=== PATIENT | female | born 1990 | race Caucasian/White ===

== ENCOUNTER 2016-07-03 16:08 | Emergency (ER) | payer OTHER ==
[~2016-07-03] VITALS: Ht 177.8 cm; Wt 113.4 kg
[~2016-07-03 16:08] MED LIST: AMOXIL500 MG PO; ANTIBIOTIC O500 U/GM TP; ATARAX25 MG PO; BACTRIM DS 8001 TA1 PO; BENTYL10 MG PO; BUSPIRONE10 MG PO; CARAFATE1 G1 PO; CARBIDOPA/LEVOD1 TA1 PO; CEPHALEXIN500 M1 PO; CYMBALTA30 MG PO; CYMBALTA60 MG PO; EFFEXOR XR75 M1 PO; EFFEXOR100 MG PO; FLEXERIL10 MG PO; GABAPENTIN TAB600 MG PO; GABAPENTIN800 MG PO; HYDROCODONE BIT1 T11 PO; KEFLEX500 MG PO; LATU20TA PO; MACROBID100 M1; MACROBID100 M1 PO; METHOCARBAMOL750 M1 PO; MOTRIN800 MG PO; NAPROSYN500 MG PO; NAPROXEN EC500 MG PO; NKHM; NORCO 325 MG-51 TAB PO; NORCO 5-325 TA1 EACH PO; PERCOCET 325 MG1 TA2 PO; PERCOCET 325 MG1 TA5 PO; PNV-DHA1 SGL PO; PREDNICOT20 MG PO; PRENATAL VITAMI1 TAB PO; PRILOSEC20 MG PO; PRILOSEC40 MG PO; PRISTIQ100 MG PO; PRISTIQ50 MG PO; PROFERRIN ES12 MG PO; PYRIDIUM200 MG PO; QUETIAPINE FUMA25 MG PO; REMERON15 MG PO; RESTORIL30 M1 PO; REXULTI2 MG PO; ROBAXIN750 MG PO; TRAMADOL HCL50 MG PO; ULTRAM50 MG PO; VIIBRYD40 PO; ZANTAC 150150 MG PO; ZANTAC150 MG PO; ZITHROMAX Z PA250 MG PO; [UNRECOGNIZED DRUG - OTHER]
[2016-07-03 17:05] LABS: BASO % 0.4 % (0.0-1.0); EOS # 0.4 10*3/uL (0.0-0.4); EOS % 4.1 % (1.0-4.0); HEMATOCRIT 37.8 % (37.0-47.0); IG # 0.1 10*3/uL (0.0-0.1); LYMPH # 3.4 10*3/uL (1.3-4.4); LYMPH % 35.3 % (27.0-41.0); MEAN CELL VOLUME 97.7 fl (81.0-99.0); MEAN CORPUSCULAR HGB 33.6 pg (27.0-31.0); MEAN CORPUSCULAR HGB CONC 34.4 g/dl (33.0-37.0); MEAN PLATELET VOLUME 9.9 fl (9.6-12.3); MONO # 0.5 10*3/uL (0.1-1.0); MONO % 5.3 % (3.0-9.0); NEUT # 5.2 10*3/uL (2.3-7.9); NEUT % 54.4 % (47.0-73.0); PLATELET COUNT AUTOMATED 270 10*3/uL (130-400); RED BLOOD COUNT 3.87 10*6/uL (4.10-5.10); RED CELL DISTRI WIDTH 12.1 % (0-14.5); WHITE BLOOD COUNT 9.5 10*3/uL (4.8-10.8)
[2016-07-03 17:29] LABS: ALBUMIN 3.4 gm/dl (3.1-4.5); ALKALINE PHOSPHATASE 80 U/L (45-117); BILIRUBIN, TOTAL 0.2 mg/dl (0.2-1.0); BUN 13 mg/dl (7-24); CARBON DIOXIDE 27 mmol/L (21-32); CHLORIDE 106 mmol/L (98-107); EST GLOM FILT AFRICAN AMERICAN > 60 ml/min; GLUCOSE 92 mg/dL (65-99); POTASSIUM 3.8 mmol/L (3.5-5.1); SGOT/AST 13 IU/L (3-35); SGPT/ALT 22 U/L (12-78); SODIUM 141 mmol/L (136-145); TOTAL PROTEIN 7.1 gm/dL (6.4-8.2)
[2016-07-03 17:32] LABS: TROPONIN I < 0.015 ng/ml (<0.5)
[2016-07-03] MEDS ORDERED: CYCLOBENZAPRINE10 MG PO (17:51)
[2016-07-03] MEDS ORDERED: PREDNISONE20 M1 PO (17:51)
== END 2016-07-03 18:14 | disposition home or self-care (01) ==
LOC: ED 16:08
PROVIDERS: Nurse Practitioner Family
DX: S46.912A Strain of unspecified muscle, fascia and tendon at shoulder and upper arm level, left arm, initial encounter (principal); R22.0 Localized swelling, mass and lump, head; T36.1X5A Adverse effect of cephalosporins and other beta-lactam antibiotics, initial encounter; Z88.0 Allergy status to penicillin; Z88.6 Allergy status to analgesic agent; X58.XXXA Exposure to other specified factors, initial encounter; Y93.9 Activity, unspecified; Y92.9 Unspecified place or not applicable; Y99.9 Unspecified external cause status

== ENCOUNTER 2017-09-23 15:42 | Emergency (ER) | payer OTHER ==
[~2017-09-23] VITALS: Ht 177.8 cm; Wt 104.3 kg
[~2017-09-23 15:42] MED LIST changes: +CYCLOBENZAPRINE10 MG PO; +PREDNISONE20 M1 PO
[2017-09-23] MEDS ORDERED: CYCLOBENZAPRINE5 M3 PO (17:20)
== END 2017-09-23 17:26 | disposition home or self-care (01) ==
LOC: ED 15:42
DX: S16.1XXA Strain of muscle, fascia and tendon at neck level, initial encounter (principal); R51 Headache; F17.200 Nicotine dependence, unspecified, uncomplicated; F11.10 Opioid abuse, uncomplicated; Z98.51 Tubal ligation status; Z79.899 Other long term (current) drug therapy; Z88.0 Allergy status to penicillin; Z88.6 Allergy status to analgesic agent; Z88.8 Allergy status to other drugs, medicaments and biological substances; V49.88XA Car occupant (driver) (passenger) injured in other specified transport accidents, initial encounter; Y93.89 Activity, other specified; Y92.413 State road as the place of occurrence of the external cause; Y99.9 Unspecified external cause status

== ENCOUNTER → 2019-10-21 | Outpatient (CLI) | payer OTHER ==
[~2019-10-21] MED LIST changes: +COLACE100 MG PO; +CYCLOBENZAPRINE5 M3 PO; +MIRALAX POWDER17 G1 PO
== END | disposition home or self-care (01) ==
LOC: RAD 12:03
DX: M54.5 Low back pain (principal)

== ENCOUNTER 2019-11-10 13:46 | Emergency (ER) | payer OTHER ==
[~2019-11-10] VITALS: Ht 177.8 cm; Wt 104.3 kg
[2019-11-10] MEDS ORDERED: Motrin,Rufen800 MG PO (17:19)
[2019-11-10] MEDS ORDERED: CYCLOBENZAPRINE5 M3 PO (17:19)
== END 2019-11-10 17:46 | disposition home or self-care (01) ==
LOC: ED 13:46
DX: S13.4XXA Sprain of ligaments of cervical spine, initial encounter (principal); F17.200 Nicotine dependence, unspecified, uncomplicated; Z98.51 Tubal ligation status; Z79.899 Other long term (current) drug therapy; Z88.0 Allergy status to penicillin; Z88.6 Allergy status to analgesic agent; V49.88XA Car occupant (driver) (passenger) injured in other specified transport accidents, initial encounter; Y93.89 Activity, other specified; Y92.413 State road as the place of occurrence of the external cause; Y99.9 Unspecified external cause status

== ENCOUNTER → 2019-11-30 | Outpatient (CLI) | payer OTHER ==
[~2019-11-30] MED LIST changes: +Motrin,Rufen800 MG PO
[2019-11-30 10:57] LABS: HEMATOCRIT 39.1 % (37.0-47.0); MEAN CELL VOLUME 95.8 fl (81.0-99.0); MEAN CORPUSCULAR HGB 32.8 pg (27.0-31.0); MEAN CORPUSCULAR HGB CONC 34.3 g/dl (33.0-37.0); MEAN PLATELET VOLUME 10.4 fl (9.6-12.3); RED BLOOD COUNT 4.08 10*6/uL (4.10-5.10); RED CELL DISTRI WIDTH 12.1 % (0-14.5); WHITE BLOOD COUNT 7.8 10*3/uL (4.8-10.8)
[2019-11-30 11:19] LABS: ALBUMIN 3.6 gm/dl (3.1-4.5); ALKALINE PHOSPHATASE 78 U/L (45-117); BUN 10 mg/dl (7-24); CHLORIDE 107 mmol/L (98-107); CREATININE 0.89 mg/dL (0.55-1.02); POTASSIUM 3.9 mmol/L (3.5-5.1); SGOT/AST 19 IU/L (3-35); SGPT/ALT 31 U/L (12-78); SODIUM 139 mmol/L (136-145); TOTAL PROTEIN 7.4 gm/dL (6.4-8.2)
[2019-12-05 03:06] LABS: IGG P18 AB Absent (.); IGG P23 AB Absent (.); IGG P28 AB Absent (.); IGG P30 AB Absent (.); IGG P39 AB Absent (.); IGG P41 AB Absent (.); IGG P45 AB Absent (.); IGG P58 AB Absent (.); IGG P63 AB Absent (.); IGG P66 AB Absent (.); IGM P23 AB Absent (.); IGM P39 AB Present (.); IGM P41 AB Absent (.); LYME IGG WB INTERPRETATION Negative (.); LYME IGM WB INTERPRETATION Negative (.); LYME REFLEX CHARGE CHG
== END | disposition home or self-care (01) ==
LOC: LAB 10:32
PROVIDERS: Family Medicine
DX: R21 Rash and other nonspecific skin eruption (principal)

== ENCOUNTER → 2020-05-04 | Outpatient (CLI) | payer OTHER ==
[2020-05-04 11:37] LABS: HEMATOCRIT 40.6 % (37.0-47.0); MEAN CELL VOLUME 93.3 fl (81.0-99.0); MEAN CORPUSCULAR HGB 31.7 pg (27.0-31.0); MEAN PLATELET VOLUME 9.8 fl (9.6-12.3); RED BLOOD COUNT 4.35 10*6/uL (4.10-5.10); RED CELL DISTRI WIDTH 11.9 % (0-14.5); WHITE BLOOD COUNT 5.7 10*3/uL (4.8-10.8)
[2020-05-04 11:55] LABS: ALBUMIN 3.6 gm/dl (3.1-4.5); ALKALINE PHOSPHATASE 100 U/L (45-117); BUN 13 mg/dl (7-24); CHLORIDE 108 mmol/L (98-107); CHOLESTEROL 263 mg/dL (<200); CREATININE 0.82 mg/dL (0.55-1.02); HDL CHOLESTEROL 62 mg/dl (40-60); LDL CHOLESTEROL 183 mg/dL (9-159); POTASSIUM 4.1 mmol/L (3.5-5.1); SGOT/AST 34 IU/L (3-35); SGPT/ALT 72 U/L (12-78); SODIUM 138 mmol/L (136-145); TOTAL PROTEIN 7.4 gm/dL (6.4-8.2); TRIGLYCERIDES 92 mg/dl (<150); VLDL CHOLESTEROL 18 mg/dL (6-40)
[2020-05-04 12:19] LABS: VITAMIN D, 25-HYDROXY 24.3 ng/mL (30-100)
== END | disposition home or self-care (01) ==
LOC: LAB 11:21
PROVIDERS: ATTEND Family Medicine
DX: M54.5 Low back pain (principal); R53.83 Other fatigue; F41.1 Generalized anxiety disorder; K59.00 Constipation, unspecified; E74.00 Glycogen storage disease, unspecified; R05 Cough; R06.02 Shortness of breath; Z72.0 Tobacco use; Z13.220 Encounter for screening for lipoid disorders

== ENCOUNTER → 2020-06-23 | Outpatient (CLI) | payer OTHER | END | disposition home or self-care (01) | LOC: US 09:32 | PROVIDERS: ATTEND Nurse Practitioner Women's Health | DX: N88.8 Other specified noninflammatory disorders of cervix uteri (principal); N94.89 Other specified conditions associated with female genital organs and menstrual cycle ==

== ENCOUNTER 2020-11-05 12:33 | Emergency (ER) | payer OTHER ==
[~2020-11-05] VITALS: Ht 177.8 cm; Wt 95.3 kg
== END 2020-11-05 15:34 | disposition home or self-care (01) ==
LOC: ED 12:33
DX: R60.0 Localized edema (principal); F17.200 Nicotine dependence, unspecified, uncomplicated; Z88.0 Allergy status to penicillin; Z88.8 Allergy status to other drugs, medicaments and biological substances; Z79.899 Other long term (current) drug therapy; Z98.51 Tubal ligation status

== ENCOUNTER → 2021-09-25 | Outpatient (CLI) | payer OTHER | END | disposition home or self-care (01) | LOC: US 10:22 | PROVIDERS: ATTEND Nurse Practitioner Women's Health | DX: N63.10 Unspecified lump in the right breast, unspecified quadrant (principal); Z80.3 Family history of malignant neoplasm of breast ==

== ENCOUNTER → 2022-05-25 | Outpatient (CLI) | payer OTHER ==
[2022-05-25 10:03] LABS: HEMATOCRIT 37.3 % (37.0-47.0); MEAN CELL VOLUME 93.7 fl (81.0-99.0); MEAN CORPUSCULAR HGB 31.7 pg (27.0-31.0); MEAN CORPUSCULAR HGB CONC 33.8 g/dl (33.0-37.0); MEAN PLATELET VOLUME 10.7 fl (9.6-12.3); RED BLOOD COUNT 3.98 10*6/uL (4.10-5.10); RED CELL DISTRI WIDTH 12.4 % (0-14.5); WHITE BLOOD COUNT 5.9 10*3/uL (4.8-10.8)
[2022-05-25 10:33] LABS: ALKALINE PHOSPHATASE 56 U/L (46-116); BUN 9 mg/dl (9-23); CHLORIDE 112 mmol/L (98-107); CHOLESTEROL 176 mg/dL (<200); CREATININE 0.72 mg/dL (0.55-1.02); LDL CHOLESTEROL 116 mg/dL (9-159); POTASSIUM 3.5 mmol/L (3.4-5.1); SGPT/ALT 12 U/L (10-49); SODIUM 144 mmol/L (136-145); TOTAL PROTEIN 6.5 gm/dL (6.0-8.0); TRIGLYCERIDES 84 mg/dl (<150)
== END | disposition home or self-care (01) ==
LOC: LAB 09:06
PROVIDERS: ATTEND Family Medicine
DX: M25.50 Pain in unspecified joint (principal)

== ENCOUNTER → 2022-07-04 | Outpatient (CLI) | payer OTHER | END | disposition home or self-care (01) | LOC: MAMMO 02:34 | PROVIDERS: ATTEND Nurse Practitioner Women's Health | DX: N63.10 Unspecified lump in the right breast, unspecified quadrant (principal); N64.4 Mastodynia; R92.2 Inconclusive mammogram; Z80.3 Family history of malignant neoplasm of breast ==

== ENCOUNTER 2022-12-29 21:10 | Emergency (ER) | payer OTHER ==
[~2022-12-29] VITALS: Ht 177.8 cm; Wt 74.4 kg
[2022-12-29] MEDS ORDERED: CYCLOBENZAPRINE10 MG PO (23:20)
== END 2022-12-29 23:37 | disposition home or self-care (01) ==
LOC: ED 21:10
DX: S16.1XXA Strain of muscle, fascia and tendon at neck level, initial encounter (principal); S20.01XA Contusion of right breast, initial encounter; S80.811A Abrasion, right lower leg, initial encounter; R11.0 Nausea; F32.A Depression, unspecified; F41.9 Anxiety disorder, unspecified; Z88.0 Allergy status to penicillin; Z88.6 Allergy status to analgesic agent; Z88.8 Allergy status to other drugs, medicaments and biological substances; Z98.51 Tubal ligation status; F17.200 Nicotine dependence, unspecified, uncomplicated; V89.2XXA Person injured in unspecified motor-vehicle accident, traffic, initial encounter; Y93.89 Activity, other specified; Y92.410 Unspecified street and highway as the place of occurrence of the external cause; Y99.8 Other external cause status

== ENCOUNTER → 2023-03-05 | Outpatient (CLI) | payer OTHER | END | disposition home or self-care (01) | LOC: US 02-21 01:33 | PROVIDERS: ATTEND Nurse Practitioner Women's Health | DX: N63.12 Unspecified lump in the right breast, upper inner quadrant (principal) ==

== ENCOUNTER → 2023-05-31 | Outpatient (CLI) | payer OTHER ==
[2023-05-31 15:33] LABS: BASO # 0.1 10*3/uL (0.0-0.1); BASO % 0.9 % (0.0-1.0); EOS # 0.8 10*3/uL (0.0-0.4); EOS % 10.9 % (1.0-4.0); HEMATOCRIT 36.2 % (37.0-47.0); LYMPH # 2.9 10*3/uL (1.3-4.4); LYMPH % 40.9 % (27.0-41.0); MEAN CELL VOLUME 98.1 fl (81.0-99.0); MEAN CORPUSCULAR HGB 32.2 pg (27.0-31.0); MEAN CORPUSCULAR HGB CONC 32.9 g/dl (33.0-37.0); MEAN PLATELET VOLUME 10.2 fl (9.6-12.3); MONO # 0.5 10*3/uL (0.1-1.0); MONO % 7.2 % (3.0-9.0); NEUT # 2.8 10*3/uL (2.3-7.9); NEUT % 39.8 % (47.0-73.0); PLATELET COUNT AUTOMATED 180 10*3/uL (130-400); RED BLOOD COUNT 3.69 10*6/uL (4.10-5.10); RED CELL DISTRI WIDTH 12.3 % (0-14.5)
== END | disposition home or self-care (01) ==
LOC: LAB 02:10 → US 15:00 → LAB 15:00
PROVIDERS: ATTEND Nurse Practitioner Women's Health
DX: N93.9 Abnormal uterine and vaginal bleeding, unspecified (principal); R53.83 Other fatigue

== ENCOUNTER 2024-03-04 20:09 | Emergency (ER) | payer OTHER ==
[~2024-03-04] VITALS: Ht 177.8 cm; Wt 76.2 kg
[2024-03-04] MEDS ORDERED: SILVADENE20 GM T (20:45)
[2024-03-04] MEDS ORDERED: CEPHALEXIN500 M1 PO (20:45)
[2024-03-04] MEDS ORDERED: SILVER SULFADIAZINE 25 GM TUBE T ONE (20:50)
[2024-03-04] MEDS ORDERED: CEPHALEXIN 500 MG CAP PO ONE (20:50)
== END 2024-03-04 21:11 | disposition home or self-care (01) ==
LOC: ED 20:09
DX: T24.102A Burn of first degree of unspecified site of left lower limb, except ankle and foot, initial encounter (principal); L03.116 Cellulitis of left lower limb; F32.A Depression, unspecified; F41.9 Anxiety disorder, unspecified; T31.0 Burns involving less than 10% of body surface; F17.200 Nicotine dependence, unspecified, uncomplicated; Z88.0 Allergy status to penicillin; Z88.6 Allergy status to analgesic agent; Z88.5 Allergy status to narcotic agent; Z98.51 Tubal ligation status; Z98.890 Other specified postprocedural states; X08.8XXA Exposure to other specified smoke, fire and flames, initial encounter; Y93.89 Activity, other specified; Y92.89 Other specified places as the place of occurrence of the external cause; Y99.8 Other external cause status

== ENCOUNTER → 2024-03-25 | Outpatient (CLI) | payer OTHER ==
[~2024-03-25] MED LIST changes: +SILVADENE20 GM T
== END | disposition home or self-care (01) ==
LOC: WOUNDCARE 14:53
PROVIDERS: ATTEND Nurse Practitioner Family
DX: T24.302A Burn of third degree of unspecified site of left lower limb, except ankle and foot, initial encounter (principal); T31.0 Burns involving less than 10% of body surface; E78.00 Pure hypercholesterolemia, unspecified; L53.9 Erythematous condition, unspecified; R60.0 Localized edema; F17.210 Nicotine dependence, cigarettes, uncomplicated; F11.90 Opioid use, unspecified, uncomplicated; F32.A Depression, unspecified; F41.9 Anxiety disorder, unspecified; Z98.51 Tubal ligation status; Z79.899 Other long term (current) drug therapy; X08.8XXA Exposure to other specified smoke, fire and flames, initial encounter; Y93.89 Activity, other specified; Y92.89 Other specified places as the place of occurrence of the external cause; Y99.8 Other external cause status

== ENCOUNTER → 2024-04-01 | Outpatient (CLI) | payer OTHER | END | disposition home or self-care (01) | LOC: WOUNDCARE 02:30 | PROVIDERS: ATTEND Nurse Practitioner Family | DX: T24.302D Burn of third degree of unspecified site of left lower limb, except ankle and foot, subsequent encounter (principal); T31.0 Burns involving less than 10% of body surface; L53.9 Erythematous condition, unspecified; R60.0 Localized edema; E78.00 Pure hypercholesterolemia, unspecified; F17.290 Nicotine dependence, other tobacco product, uncomplicated; F32.A Depression, unspecified; F41.9 Anxiety disorder, unspecified; X08.8XXD Exposure to other specified smoke, fire and flames, subsequent encounter ==

== ENCOUNTER → 2024-04-08 | Outpatient (CLI) | payer OTHER | END | disposition home or self-care (01) | LOC: WOUNDCARE 02:25 | PROVIDERS: ATTEND Nurse Practitioner Family | DX: T24.302D Burn of third degree of unspecified site of left lower limb, except ankle and foot, subsequent encounter (principal); T31.0 Burns involving less than 10% of body surface; E78.00 Pure hypercholesterolemia, unspecified; L53.9 Erythematous condition, unspecified; R60.0 Localized edema; F17.210 Nicotine dependence, cigarettes, uncomplicated; F11.90 Opioid use, unspecified, uncomplicated; F32.A Depression, unspecified; F41.9 Anxiety disorder, unspecified; Z98.51 Tubal ligation status; Z79.899 Other long term (current) drug therapy; X08.8XXD Exposure to other specified smoke, fire and flames, subsequent encounter ==

== ENCOUNTER → 2024-09-10 | Outpatient (CLI) | payer OTHER ==
[2024-09-10 11:41] LABS: BASO # 0.1 10*3/uL (0.0-0.1); BASO % 0.9 % (0.0-1.0); EOS # 0.7 10*3/uL (0.0-0.4); EOS % 10.3 % (1.0-4.0); HEMATOCRIT 33.5 % (37.0-47.0); MEAN CELL VOLUME 94.1 fl (81.0-99.0); MEAN CORPUSCULAR HGB 32.3 pg (27.0-31.0); MEAN CORPUSCULAR HGB CONC 34.3 g/dl (33.0-37.0); MEAN PLATELET VOLUME 10.4 fl (9.6-12.3); MONO # 0.5 10*3/uL (0.1-1.0); NEUT % 30.8 % (47.0-73.0); PLATELET COUNT AUTOMATED 163 10*3/uL (130-400); RED BLOOD COUNT 3.56 10*6/uL (4.10-5.10); RED CELL DISTRI WIDTH 12.3 % (0-14.5); WHITE BLOOD COUNT 6.6 10*3/uL (4.8-10.8)
[2024-09-10 12:20] LABS: ALKALINE PHOSPHATASE 63 U/L (46-116); BUN 8 mg/dl (9-23); CHLORIDE 108 mmol/L (98-107); CHOLESTEROL 167 mg/dL (<200); LDL CHOLESTEROL 100 mg/dL (9-159); POTASSIUM 3.1 mmol/L (3.4-5.1); SGPT/ALT 13 U/L (5-49); TOTAL PROTEIN 6.3 gm/dL (6.0-8.0); TRIGLYCERIDES 128 mg/dl (<150)
[2024-09-11 16:04] LABS: THYROGLOBULIN ANTIBODY <1.0 IU/mL (0.0-0.9)
== END | disposition home or self-care (01) ==
LOC: US 09-08 00:56 → LAB 00:23 → US 10:00
PROVIDERS: Family Medicine; ATTEND Nurse Practitioner Women's Health
DX: N93.9 Abnormal uterine and vaginal bleeding, unspecified (principal); R53.83 Other fatigue

== ENCOUNTER → 2024-09-24 | Outpatient (CLI) | payer OTHER | END | disposition home or self-care (01) | LOC: LAB 17:48 | PROVIDERS: ATTEND Nurse Practitioner Women's Health | DX: R79.89 Other specified abnormal findings of blood chemistry (principal) ==

== ENCOUNTER 2025-03-08 17:01 | Emergency (ER) | payer OTHER ==
[~2025-03-08] VITALS: Ht 177.8 cm; Wt 70.3 kg
[2025-03-08] MEDS ORDERED: METHOCARBAMOL 750 MG TAB PO ONE (18:25)
[2025-03-08] MEDS ORDERED: Acetaminophen/Hydrocodone 5 MG/325 MG TABLET PO ONE (18:25)
[2025-03-08] MEDS ORDERED: SILVER SULFADIAZINE 25 GM TUBE T ONE (18:45)
[2025-03-08] MEDS ORDERED: METHOCARBAMOL500 M1 PO (18:46)
[2025-03-08] MEDS ORDERED: SILVADENE20 GM T (18:46)
== END 2025-03-08 20:02 | disposition home or self-care (01) ==
LOC: ED 17:01
DX: T25.211A Burn of second degree of right ankle, initial encounter (principal); R52 Pain, unspecified; F17.200 Nicotine dependence, unspecified, uncomplicated; Z79.899 Other long term (current) drug therapy; Z88.0 Allergy status to penicillin; Z88.6 Allergy status to analgesic agent; Z98.51 Tubal ligation status; V89.2XXA Person injured in unspecified motor-vehicle accident, traffic, initial encounter; Y93.89 Activity, other specified; Y92.89 Other specified places as the place of occurrence of the external cause; Y99.8 Other external cause status

== ENCOUNTER → 2025-03-17 | Outpatient (CLI) | payer OTHER ==
[~2025-03-17] MED LIST changes: +METHOCARBAMOL500 M1 PO
== END | disposition home or self-care (01) ==
LOC: WOUNDCARE 03-16 23:01
PROVIDERS: ATTEND Nurse Practitioner Family
DX: T25.311A Burn of third degree of right ankle, initial encounter (principal); L53.9 Erythematous condition, unspecified; R60.0 Localized edema; E78.00 Pure hypercholesterolemia, unspecified; F41.9 Anxiety disorder, unspecified; F32.A Depression, unspecified; F17.210 Nicotine dependence, cigarettes, uncomplicated; Z98.51 Tubal ligation status; Z96.651 Presence of right artificial knee joint; Z79.899 Other long term (current) drug therapy

== ENCOUNTER → 2025-03-24 | Outpatient (CLI) | payer OTHER | END | disposition home or self-care (01) | LOC: WOUNDCARE 02:10 | PROVIDERS: ATTEND Nurse Practitioner Family | DX: T25.311D Burn of third degree of right ankle, subsequent encounter (principal); T31.0 Burns involving less than 10% of body surface; L53.9 Erythematous condition, unspecified; R60.0 Localized edema; E78.00 Pure hypercholesterolemia, unspecified; F41.9 Anxiety disorder, unspecified; F32.A Depression, unspecified; F17.210 Nicotine dependence, cigarettes, uncomplicated; Z98.51 Tubal ligation status; Z98.890 Other specified postprocedural states; Z79.899 Other long term (current) drug therapy ==

== ENCOUNTER → 2025-04-06 | Outpatient (CLI) | payer OTHER | END | disposition home or self-care (01) | LOC: RAD 04-02 01:22 | PROVIDERS: ATTEND Internal Medicine Pulmonary Disease | DX: R06.02 Shortness of breath (principal) ==

== ENCOUNTER → 2025-04-08 | Outpatient (CLI) | payer OTHER | END | disposition home or self-care (01) | LOC: WOUNDCARE 01:14 | PROVIDERS: ATTEND Nurse Practitioner Family | DX: T25.311D Burn of third degree of right ankle, subsequent encounter (principal); T31.0 Burns involving less than 10% of body surface; L53.9 Erythematous condition, unspecified; R60.0 Localized edema; E78.00 Pure hypercholesterolemia, unspecified; F32.A Depression, unspecified; F41.9 Anxiety disorder, unspecified; F17.290 Nicotine dependence, other tobacco product, uncomplicated; Z98.51 Tubal ligation status; X08.8XXD Exposure to other specified smoke, fire and flames, subsequent encounter ==